=== PATIENT | female | born 1985 | race Caucasian/White ===

== ENCOUNTER 2017-12-03 06:43 | Emergency (ER) | payer MEDICAID ==
[~2017-12-03] VITALS: Ht 165.1 cm; Wt 55.4 kg
[~2017-12-03 06:43] MED LIST: CYCL-1 PO; PREN-139 PO
[2017-12-03] MEDS ORDERED: NO HOME MEDS (07:17)
[2017-12-03 07:36] LABS: BASOPHILS % (AUTO) 0.5 % (0-1); EOSINOPHILS # (AUTO) 0.2 X10'3 (0-0.9); EOSINOPHILS % (AUTO) 2.4 % (0-6); HEMATOCRIT 37.9 % (35.0-45.0); HEMOGLOBIN 12.9 g/dl (12.0-16.0); LYMPHOCYTES # (AUTO) 4.1 X10'3 (1.1-4.8); MEAN CORPUSCULAR HGB CONC 34.1 % (33.0-36.5); MEAN PLATELET VOLUME 8.7 FL (7.4-10.4); MONOCYTES # (AUTO) 0.6 X10'3 (0-0.9); MONOCYTES % (AUTO) 6.5 % (2-12); NEUTROPHILS # (AUTO) 3.7 X10'3 (1.8-7.7); NEUTROPHILS % (AUTO) 42.6 % (42-75); PLATELET COUNT 275 X10'3 (140-440); RED BLOOD COUNT 4.31 X10'6 (4.20-5.60); RED CELL DISTRIBUTION WIDTH 12.9 % (11.5-14.5); WHITE BLOOD COUNT 8.6 X10'3 (4.5-11.0)
[2017-12-03 07:46] LABS: PARTIAL THROMBOPLASTIN TIME 27 SECONDS (22-32)
[2017-12-03 07:50] LABS: ALANINE AMINOTRANSFERASE 36 U/L (12-78); ALBUMIN 4.3 G/DL (3.4-5.0); ALBUMIN/GLOBULIN RATIO 1.2 (1.1-1.5); ALKALINE PHOSPHATASE 69 IU/L (46-116); ANION GAP 12 (8-16); ASPARTATE AMINO TRANSFERASE 28 U/L (10-37); BILIRUBIN,TOTAL 0.2 MG/DL (0.1-1.0); BLOOD UREA NITROGEN 15 MG/DL (7-18); BUN/CREATININE RATIO 17.9 (6.6-38.0); CALCIUM 9.1 MG/DL (8.5-10.1); CHLORIDE 102 MMOL/L (99-107); CREATININE 0.84 MG/DL (0.40-0.90); GLUCOSE 102 MG/DL (70-104); POTASSIUM 3.2 MMOL/L (3.5-5.1); SODIUM 139 MMOL/L (135-145); TOTAL CARBON DIOXIDE 25.3 MMOL/L (24-32); TOTAL PROTEIN 7.9 G/DL (6.4-8.2); eGFR 80 ML/MIN
[2017-12-03 08:07] LABS: CLARITY,URINE CLEAR (Clear); COLOR,URINE YELLOW (Yellow); GLUCOSE, URINE NEGATIVE (Neg); KETONES,URINE TRACE mg/dl (Neg); LEUKOCYTE ESTERASE ,URINE NEGATIVE (Neg); NITRITES, URINE NEGATIVE (Neg); OCCULT BLOOD,URINE NEGATIVE (Neg); PH,URINE 6.5 (4.8-8.0); PROTEIN,URINE NEGATIVE (Neg); UROBILINOGEN,URINE 0.2 E.U/dL (0.2-1.0)
[2017-12-03 08:09] LABS: UA COLLECTION TYPE CLN CATCH MIDSTREAM
[2017-12-03 08:19] LABS: D-DIMER 0.33 MG/L FEU (0-0.50); HCG SERUM QL NEGATIVE
[2017-12-03 08:19] LABS: LIPASE 107 U/L (73-393)
[2017-12-03] MEDS ORDERED: ALBU8.5H8 INH (08:31)
[2017-12-03 08:42] VITALS: BP 101/60
== END 2017-12-03 08:44 | disposition home or self-care (01) ==
LOC: ER 06:44
DX: R07.9 Chest pain, unspecified (principal); R05 Cough; G89.29 Other chronic pain; R10.13 Epigastric pain; R06.02 Shortness of breath; R51 Headache; R21 Rash and other nonspecific skin eruption
CPT/HCPCS: 36415; 71045; 80053; 81003; 83690; 84484; 84703; 85025; 85379; 85610; 85730; 93005; 99285

== ENCOUNTER 2018-07-28 22:33 | Emergency (ER) | payer BC, MEDICAID ==
[~2018-07-28] VITALS: Ht 165.1 cm; Wt 51.0 kg
[~2018-07-28 22:33] MED LIST changes: +ALBU8.5H8 INH; +NO HOME MEDS; -PREN-139 PO
[2018-07-28 22:41] VITALS: BP 122/86
--- NOTE | 2018-07-28 23:01 | NUR ---
DISCUSSED PT'S ANXIETY WITH PA UMAÑA; NEW ORDER FOR PO ATIVAN 0.5MG RECEIVED.
[2018-07-28] MEDS ORDERED: LORazepam 1 MG tablet PO ONE (23:05)
[2018-07-28] MEDS ORDERED: LIDOcaine 1% 30ml preserv. free vial IJ ONE (23:15)
== END 2018-07-28 23:51 | disposition home or self-care (01) ==
LOC: ER 22:34
DX: S91.111A Laceration without foreign body of right great toe without damage to nail, initial encounter (principal); R00.0 Tachycardia, unspecified; Z88.0 Allergy status to penicillin; Z88.8 Allergy status to other drugs, medicaments and biological substances; Z79.899 Other long term (current) drug therapy; W20.8XXA Other cause of strike by thrown, projected or falling object, initial encounter; Y93.89 Activity, other specified; Y92.89 Other specified places as the place of occurrence of the external cause; Y99.8 Other external cause status
CPT/HCPCS: 12001; 73660; 99283; J3490

== ENCOUNTER 2020-03-10 19:41 | Emergency (ER) | payer BC ==
[~2020-03-10] VITALS: Ht 165.1 cm; Wt 60.4 kg
[2020-03-10 20:36] LABS: BASOPHILS # (AUTO) 0.1 X10'3 (0-0.2); EOSINOPHILS # (AUTO) 0.5 X10'3 (0-0.9); EOSINOPHILS % (AUTO) 4.8 % (0-6); HEMATOCRIT 37.6 % (35.0-45.0); HEMOGLOBIN 12.7 g/dl (12.0-16.0); LYMPHOCYTES # (AUTO) 3.2 X10'3 (1.1-4.8); LYMPHOCYTES % (AUTO) 33.8 % (21-51); MEAN CORPUSCULAR HEMOGLOBIN 29.8 PG (27.0-31.0); MEAN CORPUSCULAR HGB CONC 33.7 g/dL (33.0-36.5); MEAN CORPUSCULAR VOLUME 88.4 FL (78-98); MEAN PLATELET VOLUME 8.1 FL (7.4-10.4); MONOCYTES # (AUTO) 0.6 X10'3 (0-0.9); MONOCYTES % (AUTO) 6.4 % (2-12); NEUTROPHILS # (AUTO) 5.1 X10'3 (1.8-7.7); PLATELET COUNT 309 X10'3 (140-440); RED BLOOD COUNT 4.25 X10'6 (4.20-5.60); RED CELL DISTRIBUTION WIDTH 12.8 % (11.5-14.5); WHITE BLOOD COUNT 9.4 X10'3 (4.5-11.0)
[2020-03-10 20:56] LABS: ALANINE AMINOTRANSFERASE 69 U/L (12-78); ALBUMIN 3.8 G/DL (3.4-5.0); ALKALINE PHOSPHATASE 82 IU/L (46-116); ANION GAP 6 (8-16); ASPARTATE AMINO TRANSFERASE 26 U/L (10-37); BILIRUBIN,TOTAL 0.2 MG/DL (0.1-1.0); BLOOD UREA NITROGEN 13 MG/DL (7-18); BUN/CREATININE RATIO 18.3 (6.6-38.0); CHLORIDE 107 MMOL/L (99-107); CREATININE 0.71 MG/DL (0.40-0.90); GLUCOSE 86 MG/DL (70-104); POTASSIUM 3.7 MMOL/L (3.5-5.1); SODIUM 144 MMOL/L (135-145); TOTAL CARBON DIOXIDE 30.9 MMOL/L (24-32); TOTAL PROTEIN 7.6 G/DL (6.4-8.2); eGFR > 90 ML/MIN
[2020-03-10 21:25] VITALS: BP 103/77
[2020-03-10 21:29] LABS: D-DIMER 0.43 MG/L FEU (0-0.50)
== END 2020-03-10 21:55 | disposition home or self-care (01) ==
LOC: ER 19:42
DX: R07.89 Other chest pain (principal); Z98.890 Other specified postprocedural states; Z88.0 Allergy status to penicillin; Z88.8 Allergy status to other drugs, medicaments and biological substances; Z79.899 Other long term (current) drug therapy
CPT/HCPCS: 36415; 71045; 80053; 83880; 84484; 85025; 85379; 93005; 99285

== ENCOUNTER 2024-05-06 18:33 | Emergency (ER) | payer BC, OTHER ==
[~2024-05-06] VITALS: Ht 165.1 cm; Wt 61.5 kg
[~2024-05-06 18:33] MED LIST changes: +ALBU8.5H17 INH; -ALBU8.5H8 INH
[2024-05-06 19:00] VITALS: BP 108/71; PULSE 84; RESP 18; TEMP 97.6; O2SAT 98
== END 2024-05-06 19:53 | disposition left against medical advice (07) ==
LOC: ER 18:34
DX: Z00.8 Encounter for other general examination (principal); Z88.0 Allergy status to penicillin; Z88.8 Allergy status to other drugs, medicaments and biological substances; Z53.21 Procedure and treatment not carried out due to patient leaving prior to being seen by health care provider